=== PATIENT | female | born 1975 | race Caucasian/White ===

== ENCOUNTER 2016-09-12 13:04 | Day surgery (SDC) | payer BC ==
[~2016-09-12] VITALS: Ht 154.9 cm; Wt 69.3 kg
[2016-09-12] VITALS (10 sets, daily range): BP systolic 94–115; BP diastolic 44–56; PULSE 75–99; RESP 12–19; Ht 154.9 cm; Wt 69.3 kg
[~2016-09-12 13:04] MED LIST: BUPIVACAINE 0.25%/EPI (SDV) 10 ML INJ INJ ONE; CEFAZOLIN 2 GM/50 ML (PMX) 50 ML IVPB SCH; DESFLURANE 15 MIN ONE; POLYMYXIN/BACITRACIN 1L IRRIG IRR ONE; SOD CHLORIDE 0.9% 1,000 ML IV SCH
[2016-09-12] MEDS ORDERED: BUPIVACAINE 0.25%/EPI (SDV) 10 ML INJ ONE ×2 (14:03→14:04)
[2016-09-12] MEDS ORDERED: PROPOFOL 20 ML ONE (14:16)
[2016-09-12] MEDS ORDERED: ROCURONIUM 50 MG INJ ONE (14:16)
[2016-09-12] MEDS ORDERED: LIDOCAINE 1% (MDV) 20 ML INJ ONE (14:16)
[2016-09-12] MEDS ORDERED: CEFAZOLIN 1 GM INJ ONE (14:29)
[2016-09-12] MEDS ORDERED: KETOROLAC 30 MG INJ ONE ×2 (14:30→15:46)
[2016-09-12] MEDS ORDERED: FAMOTIDINE 20 MG INJ ONE (14:30)
[2016-09-12] MEDS ORDERED: ONDANSETRON 4 MG INJ ONE (14:30)
[2016-09-12] MEDS ORDERED: DEXAMETHASONE 4 MG/ML 1 ML INJ ONE (14:30)
[2016-09-12] MEDS ORDERED: ROPIVACAINE 0.2% 20 ML VIAL ONE (14:31)
[2016-09-12] MEDS ORDERED: ACETAMINOPHEN 1000MG/100ML IV 100 ML ONE (15:18)
[2016-09-12] MEDS ORDERED: EPINEPHrine 0.1 MG/ML SYG ONE (15:18)
[2016-09-12] MEDS ORDERED: SUGAMMADEX SODIUM 200 MG/2 ML VIAL IV ONE (15:29)
[2016-09-12] MEDS ORDERED: DIPHENHYDRAMINE 50 MG INJ IV PRN (15:30)
[2016-09-12] MEDS ORDERED: MEPERIDINE 25 MG INJ IV PRN (15:30)
[2016-09-12] MEDS ORDERED: METOCLOPRAMIDE 10 MG INJ IV PRN (15:30)
[2016-09-12] MEDS ORDERED: ONDANSETRON 4 MG INJ IV PRN ×2 (15:30→16:00)
--- NOTE | 2016-09-12 15:32 | HPN ---
Date/Time of Note Date/Time of Note DATE: 09/12/16 TIME: 15:32 Interval H&P Admission Note Pt. seen H&P reviewed: No system changes YIMI GÓMEZ MD Sep 12, 2016 15:32
--- NOTE | 2016-09-12 15:41 | OPR ---
Date/Time of Note Date/Time of Note DATE: 09/12/16 TIME: 15:35 Operative Report Procedure Date: Sep 12, 2016 Preoperative Diagnosis Ventral/umbilical hernia without obstruction or gangrene Postoperative Diagnosis Ventral/umbilical hernia without obstruction or gangrene Operation Performed Laparoscopic repair of ventral/umbilical hernia with mesh Surgeon: YIMI GÓMEZ MD Anesthesia Type: general Anesthesiologist: DA PECK DO Estimated Blood Loss: minimal Transfusion Required: no Specimen: none Grafts/Implants 9 cm round Symbotex mesh Complications: no Pt Condition Post Procedure: stable Disposition: PACU Indications Patient is an obese 41-year-old female with a history of prior multiple C-sections who presented to the office with a painful bulge involving the umbilicus. She was diagnosed on physical exam as having a ventral/ umbilical hernia. This was confirmed via CT scan. The patient was scheduled for elective repair with mesh. All risks and benefits of the procedure including, but not limited to: Wound infection, excessive bleeding, postoperative seroma/hematoma formation, hernia recurrence, chronic pain, etc. were all discussed with the patient in full detail. The patient fully understood and wished to proceed with the procedure. Informed consent was obtained. Operative\Procedure Findings Small fat-containing umbilical/ventral hernia. Procedure Description The patient was brought to the operating room and placed supine on the operating table. Bilateral sequential compression devices were placed on both lower extremities. A dose of broad-spectrum perioperative intravenous antibiotics was given. After the induction of smooth general endotracheal anesthesia the patient's abdomen was prepped and draped in standard surgical fashion. The patient had a lower midline incision from prior C-sections. After performance of the surgical timeout a 5 mm incision was made in the left subcostal area and Optiview trocar was used to access the intra-abdominal cavity atraumatically. Pneumoperitoneum was then obtained and a 5 mm 30 laparoscope was placed. Two further working ports were placed, a 12 mm port in the anterior axillary line at the level of the umbilicus and another 5 mm port in the left iliac fossa. All port sites were anesthetized with 0.25% Marcaine with epinephrine prior to incision. Diagnostic laparoscopy showed a small fat- containing umbilical hernia. There were no other intra-abdominal adhesions. Using atraumatic graspers and the laparoscopic edenilson the hernia contents were reduced back into the peritoneal cavity. The falciform ligament was taken down to provide adequate room for deployment of the mesh. With the hernia completely reduced a piece of 9 cm round Covidien Symbotex mesh was used to repair the hernia defect. The mesh was large enough to cover the hernia defect with adequate overlap. The mesh was soaked in antibiotic irrigation prior to insertion into the field. A marking suture was placed in the middle of the mesh. Using an 11 blade scalpel a small heaven was made over the center of the hernia defect and with the suture passer the suture was delivered anchoring the mesh against the anterior abdominal wall. The mesh was then secured in place using a secure strap tacker in a double crown fashion. Pneumoperitoneum was decreased to 10 mmHg during the tacking of the mesh. With the repair complete it was inspected and noted to be hemostatic and tension-free. At this point an EndoClose device was used to close the fascia of the 12 mm port site with 0 Vicryl suture. Pneumoperitoneum was then released and all remaining trochars were withdrawn under direct vision. Subcutaneous tissues were irrigated with more antibiotic containing irrigation. The skin of the incision sites were then reapproximated using 4-0 Monocryl sutures in subcuticular fashion. The incisions were cleaned and Dermabond was applied as well as an abdominal binder. The patient was then awoken from anesthesia and transported to the recovery room in stable condition. All counts were correct at the end of the case x 2. YIMI GÓMEZ MD Sep 12, 2016 15:40
[2016-09-12] MEDS: HYDROmorphONE (0.2 MG/ML) 10ML SYG IV PRN ×5 (15:57→16:23)
[2016-09-12] MEDS ORDERED: morphine 2 MG INJ IV PRN (16:00)
[2016-09-12] MEDS ORDERED: IBUPROFEN 600 MG TAB PO PRN (16:00)
[2016-09-12] MEDS ORDERED: KETOROLAC 30 MG INJ IV PRN (16:00)
[2016-09-12] MEDS ORDERED: OXYCODONE/ACETAMINOPHEN (5/325) TAB PO PRN ×2 (16:00)
== END 2016-09-12 17:48 | disposition home or self-care (01) ==
LOC: SDS 13:04
PROVIDERS: ATTEND Surgery
DX: K42.9 Umbilical hernia without obstruction or gangrene (principal); E78.5 Hyperlipidemia, unspecified
CPT/HCPCS: 49652; 84703; J0131; J0171; J0690; J1100; J1170; J1885; J2175; J2270; J2405; J2795; Z7512; Z7610

== ENCOUNTER 2018-06-05 07:14 | Day surgery (SDC) | payer BC ==
[2018-06-04 16:06] VITALS: Ht 180.3 cm; Wt 65.0 kg
[~2018-06-05] VITALS: Ht 180.3 cm; Wt 65.0 kg
[2018-06-05] VITALS (18 sets, daily range): BP systolic 93–113; BP diastolic 45–57; PULSE 56–75; RESP 14–21
--- NOTE | 2018-06-05 06:22 | PREOPHP ---
DATE OF ADMISSION: 06/05/2018 HISTORY OF PRESENT ILLNESS: This 42-year-old patient is admitted for elective pterygium excision of the left eye. The patient has had a history of redness, itching and blurred vision for the past 6 ye ars involving the left eye. No prior history of eye disease or injury. The patient has no systemic illnesses and is not taking any medication. ALLERGIES: THERE ARE NO KNOWN ALLERGIES. PHYSICAL EXAMINATION: The visual acuity with correction is 20/25 in the right eye and 20/40 in the l eft eye. Slit lamp examination reveals an injected nasal pterygium extending to the nasal pupillary axis. Applanation tonometry is 15 mmHg. Examination of the retina is within normal limits. DIAGNOSIS: Visual impairing pterygium, left eye. PLAN: Pterygium excision with mitomycin C application and rotating conjunctival graft, left eye. Th e risks of recurrent pterygium have been discussed with the patient and the patient understands this and agrees to proceed with surgery in hopes of having resolution of chronic symptoms and visual probl ems related to the pterygium. Dictated By: SANGEETA ROME/KALINA Conf#: [id number] DID#: [id number]
[2018-06-05] MEDS ORDERED: MOXIFLOXACIN 0.5% 3 ML OPH OPER SCH (08:30)
[2018-06-05] MEDS ORDERED: BALANCED SALT SOLN 15 ML OPH IRRIG ONE (09:17)
[2018-06-05] MEDS ORDERED: TOBRAMYCIN/DEXAMETH 3.5 GM OPH OINT ONE (09:17)
[2018-06-05] MEDS ORDERED: TETRACAINE 0.5% 4 ML OPH ONE (09:17)
[2018-06-05] MEDS ORDERED: LIDOCAINE 1%/EPI (1:100,000) (MDV) 20 ML ONE (09:17)
--- NOTE | 2018-06-05 09:26 | PREAC ---
Date/Time of Note Date/Time of Note DATE: 06/05/18 TIME: 09:24 Anesthesia Eval and Record Evaluation Time Pre-Procedure Interview DATE: 06/05/18 TIME: 09:24 Age 42 Sex female NPO: 8 hrs Preoperative diagnosis left eye pterygium Planned procedure left pterygium repair Past Medical History Past Medical History: Includes Musculoskeletal: Osteoarthritis, Other (disc disease) Heme: Anemia Surgery & Anesthesia Issues No known issue Meds Anticoagulation: No Beta Alesia within 24 hr: No Reason Beta Alesia not given: Pt. not on B-Alesia No Active Prescriptions or Reported Meds Current Medications Mitomycin (Mutamycin) 0.3 mg INTRA-OP ONCE OP ; Start 06/05/18 at 09:30; Stop 06/05/18 at 09:31 Moxifloxacin HCl (Vigamox) 1 drop Q5 MIN X 3 OPER Last administered on 06/05/18at 08:20; Admin Dose 1 DROP; Start 06/05/18 at 08:30 Meds reviewed: Yes Allergies Coded Allergies: No Known Allergy (Unverified , 06/05/18) Allergies Reviewed: Yes Labs/Studies Labs Reviewed: Reviewed by anesthesiologist test: Negative Pre-procedure Exam Last vitals Vital Signs Date Temp Pulse Resp B/P (MAP) Pulse Ox O2 O2 Flow FiO2 Time Delivery Rate 06/05/18 98.1 75 16 113/55 100 Room Air 08:37 (74) Airway: Adequate mouth opening, Adequate thyromental dist Mallampati: Mallampati I Teeth: Normal Lung: Normal Heart: Normal ASA Physical Status ASA physical status: 2 Emergency: None Planned Anesthetic General/MAC: MAC Planned Pain Management Parenteral pain med Pre-operative Attestations Prior to commencing anesthesia and surgery, the patient was re-evaluated, there was verification of: *The patient's identity *The results of appropriate recent lab work and preoperative vital signs *The above evaluation not changing prior to induction *Anesthetic plan, risk benefits, alternative and complications discussed with patient/family; questions answered; patient/family understands, accepts and wishes to proceed. LENIN SKINNER Jun 05, 2018 09:26
[2018-06-05] MEDS ORDERED: MITOMYCIN 5 MG INJ OP ONE (09:30)
[2018-06-05] MEDS ORDERED: MIDAZOLAM 1 MG/ML 2 ML INJ ONE (09:32)
[2018-06-05] MEDS ORDERED: FENTAnyl 50 MCG/ML VIAL ONE (09:34)
[2018-06-05] MEDS ORDERED: PROPOFOL 20 ML ONE (10:03)
[2018-06-05] MEDS ORDERED: LIDOCAINE 2% (SDV) 5 ML INJ ONE (10:03)
--- NOTE | 2018-06-05 10:12 | PAC ---
Date/Time of Note Date/Time of Note DATE: 06/05/18 TIME: 10:11 Post-Anesthesia Notes Post-Anesthesia Note Last documented vital signs Vital Signs Date Temp Pulse Resp B/P (MAP) Pulse Ox O2 O2 Flow FiO2 Time Delivery Rate 06/05/18 98.1 75 16 113/55 100 Room Air 1011 (74) Activity: WNL Respiratory function: WNL Cardiovascular function: WNL Mental status: Baseline Pain reasonably controlled: Yes Hydration appropriate: Yes Nausea/Vomiting absent: Yes LENIN SKINNER Jun 05, 2018 10:12
--- NOTE | 2018-06-05 10:19 | SIPON ---
Date/Time of Note Date/Time of Note DATE: 06/05/18 TIME: 10:16 Operative Report Preoperative Diagnosis visually significant pterygium od Postoperative Diagnosis same Operation/Procedure Performed pterygium excision with mitomycin C application & rotating conjunctival graft od Surgeon sangeeta fontana assistant reading teacher none Anesthesia: MAC Estimated blood loss: none Transfusion Required none Specimen none Grafts/Implants none Complications none SANGEETA FONTANA MD Jun 05, 2018 10:19
[2018-06-05] MEDS ORDERED: ONDANSETRON 4 MG INJ IV PRN (10:30)
[2018-06-05] MEDS ORDERED: hydrALAzine 20 MG INJ IV PRN (10:30)
[2018-06-05] MEDS ORDERED: OXYCODONE/ACETAMINOPHEN (5/325) TAB PO PRN ×2 (10:30)
[2018-06-05] MEDS ORDERED: EPHEDrine SULFATE 50 MG/5 ML SYG IV PRN (10:30)
[2018-06-05] MEDS ORDERED: DIPHENHYDRAMINE 50 MG INJ IV PRN (10:30)
[2018-06-05] MEDS ORDERED: FENTAnyl 50 MCG/ML VIAL IV PRN ×2 (10:30)
[2018-06-05] MEDS ORDERED: LABETALOL HCL 20MG INJ IV PRN (10:30)
--- NOTE | 2018-06-06 06:52 | OPR ---
DATE OF OPERATION: 06/05/2018 PREOPERATIVE DIAGNOSIS: Significant pterygium, left eye. POSTOPERATIVE DIAGNOSIS: Significant pterygium, left eye. OPERATION PERFORMED: Pterygium excision with mitomycin C application and rotating conjunctival graft , left eye. SURGEON: Sangeeta Powell MD ANESTHESIA: Dr. Mcghee. PROCEDURE: The patient was brought to the operating room on an eye gurney, positioned appropriately, and then was prepped and draped in the usual sterile manner. Following this, some intravenous sedat ion was administered, and then the patient received local anesthesia using lidocaine 1% with epinephr ine given beneath the body of the pterygium, as well as in the superior conjunctival limbus. The ronnie Acosta scissors were then used to dissect the scleral side of the pterygium from the underlying sclerae and with dissection to the corneal scleral limbus. Following this, using a curved blade, the pterygium was excised off the surface of the cornea. When this had been completed, the patient rece ived hemostasis was created by using light cautery from bleeding at the area of the bleeding episcler al vessels. When hemostasis was noted to be present the corneal surface from which the pterygium had been removed was polished using a bayron tipped bur until a smooth surface was present. After this had been completed, a Weck cell sponge impregnated with mitomycin C 0.3% was applied to the bare scl era in the nasal quadrant and left in place for 1 minute. After this had been completed the sponge w as removed and the area was copiously irrigated with balanced salt solution for an additional minute. Attention was now turned to the superior limbal area where the conjunctiva was disinserted at the c orneal insertion and carried forward toward the superotemporal quadrant, a relaxing incision was the n made in the conjunctiva and a tongue-like flap was created by incising that area of conjunctiva aleksandr k toward the supranasal quadrant. Using surgical glue, some of the glue was placed on the bed of the sclera and then the conjunctival flap was rotated in place and placed over the defect created by the excision of the pterygium. After this had been left in place for approximately 30 seconds, addition al glue was applied on the anterior surface of the conjunctival flap. After giving it a period of ti me to set, attention was turned to the superior limbal area where conjunctiva was brought down to the edge of the limbal area. The speculum was then removed, it was noted that hemostasis was present an d then TobraDex ophthalmic ointment was placed on the surface of the eye and a pressure patch was brian lied. The patient then left the operating room in satisfactory condition. Dictated By: SANGEETA ROME/KALINA Conf#: [id number] DID#: [id number]
== END 2018-06-05 12:35 | disposition home or self-care (01) ==
LOC: SDS 07:14
PROVIDERS: ATTEND Ophthalmology
DX: H11.002 Unspecified pterygium of left eye (principal)
CPT/HCPCS: 65426; 84703; J2250; J3010; J9280; Z7512; Z7610